=== PATIENT | female | born 1970 | race African-American/Black ===

== ENCOUNTER 2019-04-15 22:01 | Emergency (ER) | payer OTHER ==
[~2019-04-15] VITALS: Ht 157.5 cm; Wt 123.0 kg
[2019-04-15 22:14] VITALS: BP 140/73
== END 2019-04-15 23:10 | disposition left against medical advice (07) ==
LOC: ER 22:01
DX: R05 Cough (principal); R09.81 Nasal congestion; Z53.21 Procedure and treatment not carried out due to patient leaving prior to being seen by health care provider